=== PATIENT | female | born 1975 | race Caucasian/White ===

== ENCOUNTER 2018-05-18 18:07 | Emergency (ER) | payer MEDICAID, OTHER ==
[~2018-05-18] VITALS: Ht 154.9 cm; Wt 85.4 kg
[~2018-05-18 18:07] MED LIST: FLUC200T PO; NITR100C6 PO; PHEN-873 PO
[2018-05-18 18:40] LABS: URINE HCG NEGATIVE (NEG)
[2018-05-18 18:57] LABS: CLARITY,URINE CLOUDY (Clear); COLOR,URINE YELLOW (Yellow); GLUCOSE, URINE NEGATIVE (Neg); KETONES,URINE NEGATIVE (Neg); LEUKOCYTE ESTERASE ,URINE MODERATE (Neg); NITRITES, URINE NEGATIVE (Neg); OCCULT BLOOD,URINE LARGE (Neg); PROTEIN,URINE >=300 mg/dl (Neg); UROBILINOGEN,URINE 0.2 E.U/dL (0.2-1.0)
[2018-05-18 18:59] LABS: UA COLLECTION TYPE NON-SPECIFIED
[2018-05-18 19:06] LABS: BACTERIA,URINE 4+ /HPF (Neg); RBC,URINE 20-50 /HPF (0-2); SQUAMOUS EPITHELIAL CELL,UR NONE SEEN /LPF (FEW); WBC,URINE TNTC /HPF (0-4)
[2018-05-18 19:35] VITALS: BP 129/76
[2018-05-18] MEDS ORDERED: cephalexin 500mg capsule PO ONE (19:40)
[2018-05-18] MEDS ORDERED: HYDR-3965 PO (19:42)
[2018-05-18] MEDS ORDERED: CEPH500C5 PO (19:42)
[2018-05-18] MEDS ORDERED: HYDROcodone/acetaminophen 5mg/325mg tablet PO ONE (19:50)
== END 2018-05-18 20:15 | disposition home or self-care (01) ==
LOC: ER 18:07
DX: N39.0 Urinary tract infection, site not specified (principal); R10.30 Lower abdominal pain, unspecified; Z79.899 Other long term (current) drug therapy
CPT/HCPCS: 81001; 81025; 87088; 99284

== ENCOUNTER 2018-06-01 14:15 | Emergency (ER) | payer MEDICAID, OTHER ==
[~2018-06-01] VITALS: Ht 154.9 cm; Wt 84.1 kg
[~2018-06-01 14:15] MED LIST changes: +CEPH500C5 PO; +HYDR-3965 PO; +PHEN-786 PO; -PHEN-873 PO
[2018-06-01 14:23] VITALS: BP 120/96
[2018-06-01 14:35] LABS: URINE HCG NEGATIVE (NEG)
[2018-06-01 14:44] LABS: CLARITY,URINE TURBID (Clear); COLOR,URINE YELLOW (Yellow); GLUCOSE, URINE NEGATIVE (Neg); KETONES,URINE NEGATIVE (Neg); LEUKOCYTE ESTERASE ,URINE LARGE (Neg); NITRITES, URINE NEGATIVE (Neg); OCCULT BLOOD,URINE LARGE (Neg); PROTEIN,URINE 100 mg/dl (Neg); UROBILINOGEN,URINE 0.2 E.U/dL (0.2-1.0)
[2018-06-01 14:50] LABS: UA COLLECTION TYPE CLN CATCH MIDSTREAM
[2018-06-01 14:51] LABS: WBC,URINE TNTC /HPF (0-4)
[2018-06-01 14:52] LABS: BACTERIA,URINE 1+ /HPF (Neg); SQUAMOUS EPITHELIAL CELL,UR FEW /LPF (FEW)
[2018-06-01] MEDS ORDERED: BACDS PO (15:06)
[2018-06-01] MEDS ORDERED: PHEN-716 PO (15:12)
[2018-06-01] MEDS ORDERED: HYDROcodone/acetaminophen 5mg/325mg tablet PO ONE (15:15)
== END 2018-06-01 15:32 | disposition home or self-care (01) ==
LOC: ER 14:16
DX: N39.0 Urinary tract infection, site not specified (principal); Z79.899 Other long term (current) drug therapy
CPT/HCPCS: 81001; 81025; 87088; 99284